=== PATIENT | female | born 1995 | race Caucasian/White ===

== ENCOUNTER 2024-10-09 06:13 | Emergency (ER) | payer SELFPAY ==
[~2024-10-09] VITALS: Ht 165.1 cm; Wt 70.0 kg
[2024-10-09 06:24] VITALS: BP 126/68; PULSE 82; RESP 18; TEMP 36.6; O2SAT 100
[2024-10-09] MEDS ORDERED: ONDANSETRON HCL 4MG/2ML INJ IV STA (06:24)
[2024-10-09] MEDS ORDERED: SODIUM CHLORIDE 0.9% 1,000 ML IV ONE (06:30)
== END 2024-10-09 09:00 | disposition left against medical advice (07) ==
LOC: ER 06:13
DX: R11.2 Nausea with vomiting, unspecified (principal); R19.7 Diarrhea, unspecified; J45.909 Unspecified asthma, uncomplicated
CPT/HCPCS: 99283; J7030